=== PATIENT | male | born 1950 ===

== ENCOUNTER 2017-01-22 18:57 | Emergency (ER) | payer MEDICARE, OTHER ==
[2017-01-22 19:19] VITALS: BP 137/87
[2017-01-22] MEDS ORDERED: Aspirin Low Dose CHEW TAB* 81 MG PO ONE (19:27)
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
== END 2017-01-22 19:46 | disposition left against medical advice (07) ==
LOC: UCCORT 18:57
DX: R07.89 Other chest pain (principal); R06.00 Dyspnea, unspecified; Z53.20 Procedure and treatment not carried out because of patient's decision for unspecified reasons; I25.2 Old myocardial infarction; Z72.0 Tobacco use
CPT/HCPCS: 93005; 99202; A9270-GY; G0463

== ENCOUNTER 2017-08-08 11:41 | Emergency (ER) | payer MEDICARE, OTHER ==
[2017-08-08 12:47] VITALS: BP 128/85
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
== END 2017-08-08 13:29 | disposition home or self-care (01) ==
LOC: UCCORT 11:41
DX: G54.0 Brachial plexus disorders (principal); F17.210 Nicotine dependence, cigarettes, uncomplicated
CPT/HCPCS: 99212; G0463